=== PATIENT | male | born 1990 | race Caucasian/White ===

== ENCOUNTER 2017-05-04 14:40 | Inpatient (IN) | payer SELFPAY ==
--- NOTE | ~2017-05-04 | HP ---
Unit #: [id number] #: [id number] Patient: LEONEL ERICKSON [id number] [address] [place], [place] [address] [id number] MR#: [id number] NAME: LEONEL ERICKSON ROOM: 477 Age: 27 Sex: M Admission Date: 05/04/2017 : 1990 Attending Physician: Toby Gaspar M.D. Primary Care Physician: No Primary Care Physician HISTORY AND PHYSICAL CHIEF COMPLAINT Abscess. HISTORY OF PRESENT ILLNESS The patient is a 27-year-old Ukrainian speaking female who presented to the emergency room with his girlfriend who speaks Maori, but complaining of the spider bite on his stomach. The patient stated that it started with a pimple on the abdominal wall in the left lower quadrant, associated with a gradually worsening swelling and tenderness. The patient stated patient started squeezing and without any drainage. The patient was found to have high sugars in the emergency room with sugars at 333 and with an abdominal cellulitis. The patient is being admitted for the above reason. Denies any fever. Denies any chills. Denies any nausea or vomiting. Denies any trauma to the belly. PAST MEDICAL HISTORY None. PAST SURGICAL HISTORY None. ALLERGIES No known drug allergies. SOCIAL HISTORY Lives with his girlfriend and smokes tobacco occasionally and drinks alcohol occasionally. Denies any illicit drug abuse. FAMILY HISTORY Reviewed and none. REVIEW OF SYSTEMS Denies any nausea or vomiting. Denies any fever. Denies any shortness of breath. Denies any focal weakness, positive for the abdominal pain, swelling and tenderness. PHYSICAL EXAMINATION GENERAL: The patient is lying in the bed not in acute distress. VITALS: Temperature 98.4, pulse 102, respiratory rate 15, blood pressure 139/92, satting 100% at room air. HEENT: Head atraumatic, normocephalic. Pupils equal, round and reactive to light and accommodation. Extraocular movements are intact. NECK: Supple. Unit #: [id number] #: [id number] Patient: LEONEL ERICKSON LUNGS: Decreased air entry at the bases. HEART: Regular rate and rhythm. ABDOMEN: Soft. Positive bowel sounds, tenderness and induration at the left lower quadrant and no purulent material drainage. EXTREMITIES: No cyanosis and no clubbing. NEUROLOGIC: Alert, awake and oriented. No gross focal motor deficit. DIAGNOSTIC STUDIES LABORATORY DATA: Lactic acid is 1.3, sodium 135, potassium 3.8, chloride 101, bicarb 26, glucose 333, BUN 13, creatinine 0.7, AST 19, ALT 21, alk phos 67. WBC 12.3, hemoglobin 13, hematocrit 37.5, platelet is 158. IMAGING STUDIES: CT of the abdomen showed extensive inflammatory changes at the left lower quadrant abdominal pain. No obtainable fluid collection and no subcutaneous air. ASSESSMENT 1. Cellulitis of the left upper abdominal wall. 2. Probable newly diagnosed cavities with uncontrolled sugars. PLANS Admit the patient to the observation to telemetry, continue with the clindamycin 300 mg IV q.8 hours and patient will have a sliding scale low dose and Accu-Cheks q. a.c. and h.s. and check the CBC, BMP, and hemoglobin A1c in the morning and further recommendations will follow. Dictated by Iris Reagan TD: 05/05/2017 05:00 JOB #: [id number] HISTORY AND PHYSICAL Page 1 of 1 X TOBY GASPAR MD X HISTORY AND PHYSICAL
--- NOTE | ~2017-05-04 | OR ---
Unit #: [id number] #: [id number] Patient: LEONEL ERICKSON [id number] [address] [address] [id number] I MR#: [id number] NAME: LEONEL ERICKSON ROOM: 47 Date of Procedure: 05/06/2017 Admission Date: 05/04/2017 Surgeon: Von Phoenix III, M.D. : 1990 Attending Physician: Nila Guerrero M.D. OPERATIVE REPORT PREOPERATIVE DIAGNOSIS Left lower quadrant abdominal wall superficial abscess. POSTOPERATIVE DIAGNOSIS Left lower quadrant abdominal wall superficial abscess. PROCEDURE PERFORMED Incision and drainage of left lower quadrant abdominal wall abscess. ANESTHESIA General. SPECIMEN Cultures and tissue sent to Pathology. COMPLICATIONS None apparent. ESTIMATED BLOOD LOSS Minimal. INDICATIONS FOR PROCEDURE This is a 27-year-old gentleman, who has an abscess in the left lower quadrant of his abdominal wall. He is here today for debridement. DESCRIPTION OF PROCEDURE After consent was obtained, the patient was brought to the operating room and placed in the supine position. General anesthetic was administered and his left lower quadrant was prepped and draped in standard surgical fashion. I made a circular incision overlying the point of maximum induration. I evacuated a large purulent pocket. The diameter of the area that underwent sharp excisional debridement with a scalpel was 3 cm. I achieved good hemostasis. Cultures were obtained. I irrigated the wound and then packed it with Betadine soaked Kerlix gauze. He tolerated the procedure without any problems and returned to the recovery room in stable condition. Dictated by... Von Phoenix III, M.D. Unit #: [id number] #: [id number] Patient: LEONEL ERICKSON VCL/modl TD: 05/06/2017 17:00 JOB #: [id number] OPERATIVE REPORT Page 1 of 1 X Von Phoenix III, MD PROCEDURE OPERATIVE NOTE
--- NOTE | ~2017-05-04 | DS ---
Unit #: [id number] #: [id number] Patient: LEONEL ERICKSON [id number] [address] [address] [id number] MR#: [id number] NAME: LEONEL ERICKSON ROOM: [facility] Age: 27 Sex: M Admission Date: 05/04/2017 : 1990 Discharge Date: Attending Physician: Nila Guerrero M.D. Primary Care Physician: No Primary Care Physician DISCHARGE SUMMARY DISCHARGE DIAGNOSES 1. Left abdominal wall abscess and cellulitis. 2. Diabetes mellitus type 2, new onset, uncontrolled. CONSULTATION Dr. Sharma. PROCEDURE Patient had I and D of the left abdominal wall abscess. DIAGNOSTIC STUDIES LABORATORY: Glucose 98. Wound cultures are growing Staphylococcus aureus. Creatinine 0.7. WBC 9.4, hemoglobin 12.9. ALLERGIES None. DISCHARGE MEDICATIONS 1. [place] 5 mg one to two tablets q.6 p.r.n. pain. 2. Bactrim DS one tablet p.o. b.i.d. 3. Glipizide 2.5 mg p.o. b.i.d. before meals. HOSPITALIZATION COURSE A 27 year old admitted because of abdominal pain. Abdominal wall abscess with cellulitis: Patient is seen by [facility]. Patient had I and D. Wound cultures are growing Staphylococcus aureus. Patient received broad-spectrum IV antibiotics during the hospitalization course. The patient will be discharged on Bactrim as per [facility] recommendations. Diabetes mellitus type 2: New onset. Diabetic education has been given. Patient received sliding scale. The patient will be discharge on glipizide. FOLLOWUP 1. Follow with PCP in one to two weeks' time for diabetic management. 2. Follow with (1) in one week time. DISPOSITION Discharge home. Dictated by... Unit #: [id number] #: [id number] Patient: LEONEL ERICKSON Iris Celestin TD: 05/07/2017 12:25 JOB #: [id number] DISCHARGE SUMMARY Page 1 of 1 X Nila Guerrero MD DISCHARGE SUMMARY
--- NOTE | ~2017-05-04 | CT2 ---
[facility] A Service of [facility] & [facility] RADIOLOGY TEXT RESULTS PATIENT: LEONEL ERICKSON LOCATION: [facility] [id number] : [birth year] UNIT #: [id number] AGE: [address]: Nila Guerrero MD SEX: M ORDER DR: [id number] [facility] [address] [facility] [place], [place] [address] [id number] I MR#: [id number] #: [id number] NAME: LEONEL ERICKSON : 1990 SEX: M STUDY DATE/TIME: 05/04/2017 17:14 UNIT: [facility] ROOM: [facility] STUDY DESCRIPTION: CT Abd and Pelv W Cont Attending Physician: Raine Gaspar M.D. Ordering Physician: Ed Dario Flores M.D. Primary Care Physician: Primary Care Physician No MEDICAL IMAGING REPORT This report is preliminary unless electronic signature is present EXAM CT abdomen and pelvis. HISTORY Spider bite on stomach, abdomen pain for [address] abdomen and pelvis performed with intravenous administration 100 mL Isovue-370. Enteric contrast not administered. This CT exam was performed with one or more of the following radiation dose reduction techniques: automatic exposure control, adjustment of mA and/or kV according to patient size, and iterative reconstruction. FINDINGS There is evidence of emphysema at the lung bases. Please correlate with risk factors. Inferior heart and pericardium unremarkable. The appearance of the liver suggests fatty infiltration. The liver is enlarged at 21.4 cm in craniocaudal extent. There is more focal fatty infiltration in segment 4 adjacent to the falciform ligament. There is no focal suspicious abnormality. The gallbladder is unremarkable and the spleen is unremarkable. The pancreas, adrenal glands and kidneys are unremarkable. CT PELVIS: Mildly prominent left inguinal lymph nodes probably reactive in nature. These measure up to about 1 cm in short axis and display distinct fatty shawn. The urinary bladder is unremarkable. There is no free fluid in the pelvis. No intrapelvic or retroperitoneal adenopathy. Distal esophagus, stomach, small bowel, appendix, colon unremarkable. The vascular structures are unremarkable. Bony structures show no acute abnormality. [facility] A Service of [facility] & [facility] RADIOLOGY TEXT RESULTS PATIENT: LEONEL ERICKSON LOCATION: [facility] 477- : [birth year] UNIT #: [id number] AGE: [address]: Nila Guerrero MD SEX: M ORDER DR: In the left mid to inferior abdominal wall, extending to the inferior anterior pelvic wall. There is extensive skin thickening and subcutaneous inflammatory fat stranding and haziness. This extends over a gawunwxs-iq-rkkdgljc extent of approximately 20.6 cm. There are focal areas of subcutaneous fluid but no focal drainable fluid collection. No subcutaneous air. No clear indication of abscess formation. No soft tissue defect is seen. IMPRESSION 1. In the anterior left paracentral and lateral mid to inferior abdominal wall and extending along the anterior left paracentral pelvic wall nearly to the inguinal region there is extensive skin thickening, subcutaneous fat stranding and hazy inflammatory change and scattered small areas of localized fluid density. Findings probably reflect inflammatory change related to the patient's stated spider bite. There is no subcutaneous air. No enhancing subcutaneous fluid collection to suggest abscess. No focal drainable fluid collection. I would recommend short-interval clinical followup to confirm resolution of findings. No intraabdominal or pelvic extension of inflammatory change. There are mildly prominent right inguinal lymph nodes presumed reactive in nature and measuring up to about 1 cm in short axis. 2. Diffuse fatty infiltration of the liver. Hepatomegaly measuring 21.4 cm in craniocaudal extent. Please correlate clinically. 3. There is emphysema at the bilateral lung bases. Somewhat unusual in this relatively young patient. Correlate with risk factors. 4. See remainder of ancillary findings in body of report above. Dictated by... Stephen Stiles M.D. THIS IS AN ELECTRONICALLY VERIFIED REPORT Stephen Stiles M.D. at 05/05/2017 2:44 PM HAILEY/darryl TD: 05/05/2017 04:39 JOB #: [id number] MEDICAL IMAGING REPORT Page 1 of 1 COPY
--- NOTE | ~2017-05-04 | CO ---
Unit #: [id number] #: [id number] Patient: LEONEL ERICKSON [id number] [address] [place], [place] [address] [id number] I MR#: [id number] NAME: LEONEL ERICKSON ROOM: 47 Age: 27 Sex: M Admission Date: 05/04/2017 : 1990 Attending Physician: Nila Guerrero M.D. Primary Care Physician: Primary Care Physician No Consultation Date: 05/05/2017 CONSULTATION REPORT BRIEF HISTORY The patient is a 27-year-old gentleman, who presents with an insect bite on his abdominal wall of unknown etiology. This has began swelling and causing increasing pain. I am asked to evaluate for possible abscess. PAST MEDICAL HISTORY None. PAST SURGICAL HISTORY None. HOME MEDICATIONS None. SOCIAL HISTORY Does drink on a daily basis. Does smoke. FAMILY HISTORY Noncontributory. REVIEW OF SYSTEMS No cardiopulmonary complaints at this time. Else, 10 systems reviewed and negative per his German-speaking girlfriend. PHYSICAL EXAMINATION GENERAL: He is awake, alert, appropriate, currently afebrile. HEENT: Unremarkable. NECK: Supple. No JVD. Trachea midline. LUNGS: Clear to auscultation. Bilateral breath sounds symmetric. CARDIOVASCULAR: Regular rate and rhythm. ABDOMEN: Soft. It is tender in the left lower quadrant. There seemed to be a 15 x 3 cm fluid collection underneath the central area of necrosis measuring 0.5 cm. EXTREMITIES: No clubbing, cyanosis, or edema. ASSESSMENT AND PLAN Insect bite with abdominal wall abscess. PLAN Recommend antibiotics. We will plan for operative debridement. Discussed in detail. Dictated by... Unit #: [id number] #: [id number] Patient: LEONEL ERICKSON Iris HowellO/yue TD: 05/05/2017 16:39 JOB #: [id number] CONSULTATION REPORT Page 1 of 1 X Stephen Sharma MD X CONSULTATION REPORT
[2017-05-04 16:22] LABS: BASOPHIL# 0.1 X10e3 (0-0.3); BASOPHIL% 0.6 % (0-2.5); DIFF IND NO; EOSINOPHIL# 0.2 X10e3 (0-0.7); EOSINOPHIL% 1.9 % (0.0-7.0); HEMATOCRIT 37.5 % (38.0-50.0); LYMPHOCYTE# 1.9 X10e3 (1.0-3.5); LYMPHOCYTE% 15.5 % (17.0-45.0); MEAN CORPUSCULAR HEMOGLOBIN 30.5 PG (28-34); MEAN CORPUSCULAR HGB CONC 34.7 g/dL (30-36); MEAN PLATELET VOLUME 11.2 FL (6.5-11.5); MONOCYTE# 0.8 X10e3 (0-1.0); MONOCYTE% 6.1 % (3.0-12.0); NEUTROPHIL# 9.3 X10e3 (1.5-7.1); NEUTROPHIL% 75.9 % (40-75); PLATELET COUNT 158 X10e3 (140-420); RED BLOOD COUNT 4.26 X10e (3.90-5.60); RED CELL DISTRIBUTION WIDTH 12.7 % (11.0-15.5); WHITE BLOOD COUNT 12.3 X10e3 (4.0-10.5)
[2017-05-04 16:44] LABS: BILIRUBIN, DIRECT 0.1 mg/dL (0.0-0.2); BILIRUBIN,INDIRECT 0.9 mg/dL (0.0-0.9); BUN/CREATININE RATIO 18.57; CALCIUM SERUM 9.2 mg/dL (8.4-10.2); CREATININE SERUM 0.7 mg/dL (0.6-1.4); GLOM FILT RATE Estimated 127.6 mL/min (>60); POTASSIUM 3.8 mmol/L (3.5-5.1); PROTEIN TOTAL SERUM 7.7 g/dL (6.0-8.3)
[2017-05-05 02:21] LABS: BASOPHIL# 0.1 X10e3 (0-0.3); BASOPHIL% 0.6 % (0-2.5); EOSINOPHIL# 0.4 X10e3 (0-0.7); EOSINOPHIL% 3.4 % (0.0-7.0); HEMATOCRIT 33.3 % (38.0-50.0); HEMOGLOBIN 11.4 gm/dL (13.0-16.0); LYMPHOCYTE% 26.7 % (17.0-45.0); MEAN CELL VOLUME 88.9 FL (83-96); MEAN CORPUSCULAR HEMOGLOBIN 30.5 PG (28-34); MEAN CORPUSCULAR HGB CONC 34.3 g/dL (30-36); MEAN PLATELET VOLUME 11.1 FL (6.5-11.5); MONOCYTE# 0.6 X10e3 (0-1.0); MONOCYTE% 5.7 % (3.0-12.0); NEUTROPHIL# 7.1 X10e3 (1.5-7.1); NEUTROPHIL% 63.6 % (40-75); RED BLOOD COUNT 3.74 X10e (3.90-5.60); RED CELL DISTRIBUTION WIDTH 12.7 % (11.0-15.5); WHITE BLOOD COUNT 11.2 X10e3 (4.0-10.5)
[2017-05-05 02:31] LABS: CALCIUM SERUM 8.3 mg/dL (8.4-10.2); CREATININE SERUM 0.5 mg/dL (0.6-1.4); GLOM FILT RATE Estimated 146.5 mL/min (>60); POTASSIUM 3.7 mmol/L (3.5-5.1)
[2017-05-05 02:35] LABS: PLATELET COUNT 162 X10e3 (140-420)
[2017-05-05 02:36] LABS: DIFF IND NO
[2017-05-06 03:44] LABS: HEMATOCRIT 36.4 % (38.0-50.0); HEMOGLOBIN 12.7 gm/dL (13.0-16.0); MEAN CELL VOLUME 87.8 FL (83-96); MEAN CORPUSCULAR HEMOGLOBIN 30.7 PG (28-34); MEAN PLATELET VOLUME 9.7 FL (6.5-11.5); RED BLOOD COUNT 4.14 X10e (3.90-5.60); RED CELL DISTRIBUTION WIDTH 12.8 % (11.0-15.5); WHITE BLOOD COUNT 9.6 X10e3 (4.0-10.5)
[2017-05-06 04:08] LABS: CALCIUM SERUM 9.1 mg/dL (8.4-10.2); CREATININE SERUM 0.6 mg/dL (0.6-1.4); GLOM FILT RATE Estimated 135.9 mL/min (>60); POTASSIUM 3.6 mmol/L (3.5-5.1)
[2017-05-07 03:54] LABS: HEMATOCRIT 37.1 % (38.0-50.0); HEMOGLOBIN 12.9 gm/dL (13.0-16.0); MEAN CELL VOLUME 87.4 FL (83-96); MEAN CORPUSCULAR HEMOGLOBIN 30.4 PG (28-34); MEAN CORPUSCULAR HGB CONC 34.8 g/dL (30-36); MEAN PLATELET VOLUME 9.8 FL (6.5-11.5); RED BLOOD COUNT 4.24 X10e (3.90-5.60); RED CELL DISTRIBUTION WIDTH 12.6 % (11.0-15.5); WHITE BLOOD COUNT 9.4 X10e3 (4.0-10.5)
[2017-05-07 04:16] LABS: BUN/CREATININE RATIO 17.14; CALCIUM SERUM 9.1 mg/dL (8.4-10.2); CREATININE SERUM 0.7 mg/dL (0.6-1.4); GLOM FILT RATE Estimated 127.6 mL/min (>60); POTASSIUM 3.6 mmol/L (3.5-5.1)
[2017-05-07] MEDS ORDERED: HYDROCODON-ACE1 EAC7 PO (12:41)
[2017-05-07] MEDS ORDERED: BACTRIM DS TAB1 EACH PO (12:42)
[2017-05-07] MEDS ORDERED: GLUCOTROL PO (12:42)
== END 2017-05-07 14:09 | disposition home or self-care (01) | DRG 572 ==
LOC: CED 14:40 → CFTX 14:40 → CED 15:55 → C4C 20:20 → CED 21:15 → C4C 05-05 07:34
PROVIDERS: Internal Medicine; Nurse Practitioner; Surgery
PROC: 0JB80ZZ Excision of Abdomen Subcutaneous Tissue and Fascia, Open Approach (ICD-10-PCS; principal; 2017-05-06 09:30)
DX: L03.311 Cellulitis of abdominal wall (principal); E11.65 Type 2 diabetes mellitus with hyperglycemia; B95.61 Methicillin susceptible Staphylococcus aureus infection as the cause of diseases classified elsewhere; W57.XXXA Bitten or stung by nonvenomous insect and other nonvenomous arthropods, initial encounter
CPT/HCPCS: 36415; 74177; 80048; 80076; 82947; 83036; 83605; 85025; 85027; 87040; 87070; 87075; 87077; 87186; 87205; 88304; 88312; 96365; 99285; J1815; J2250; J2270; J2405; J3010; J3370; Q9967